=== PATIENT | female | born 1960 | race Caucasian/White ===

== ENCOUNTER 2019-11-08 17:43 | Inpatient (IN) | payer BC, OTHER, MEDICARE ==
[~2019-11-08] VITALS: Ht 165.1 cm; Wt 78.4 kg
[2019-11-08] MEDS ORDERED: ONDANSETRON 4MG/2ML VIAL IV ONE (18:00)
[2019-11-08] MEDS ORDERED: NS 500 ML IV ONE (18:00)
[2019-11-08] MEDS ORDERED: ISOVUE-370 76% 100ML VIAL As Ordered ONE (18:05)
[2019-11-08 18:30] LABS: BASO % 0.3 % (0.0-1.0); EOS % 0.4 % (0.0-3.0); HEMATOCRIT 37.3 % (36.0-47.0); HEMOGLOBIN 12.4 g/dl (12.0-15.5); LYMPH % 9.4 % (24.0-44.0); MEAN CORPUSCULAR HEMOGLOBIN 31.2 pg (27.0-33.0); MEAN CORPUSCULAR HGB CONC 33.2 g/dl (32.0-36.5); MEAN CORPUSCULAR VOLUME 93.7 fl (80.0-96.0); MONO # 0.8 10^3/uL (0.0-0.8); MONO % 7.2 % (0.0-5.0); NEUTROPHILS # 8.7 10^3/uL (1.5-8.5); PLATELET COUNT, AUTOMATED 204 10^3/uL (150-450); RED BLOOD COUNT 3.98 10^6/uL (4.00-5.40); WHITE BLOOD COUNT 10.7 10^3/uL (4.0-10.0)
[2019-11-08] MEDS: MORPHINE 2 MG/ML 1ML VIAL (J2270) IV PRN ×2 (18:35→22:00)
[2019-11-08 18:41] LABS: INR 0.94; PROTHROMBIN TIME 12.8 SECONDS (11.8-14.0)
[2019-11-08 18:42] LABS: PARTIAL THROMBOPLASTIN TIME 26.6 SECONDS (25.0-38.4)
[2019-11-08 19:00] LABS: ALBUMIN 3.7 GM/DL (3.2-5.2); ALT/SGPT 33 U/L (12-78); AMYLASE 58 U/L (25-115); BILIRUBIN,DIRECT < 0.1 MG/DL (0.0-0.2); BILIRUBIN,TOTAL 0.2 MG/DL (0.2-1.0); LIPASE 136 U/L (73-393); TOTAL PROTEIN 6.7 GM/DL (6.4-8.2)
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
[2019-11-08] MEDS ORDERED: MIDAZOLAM INJ 2MG/2ML VIAL (J2250 PER 1MG) IV STA (21:35)
[2019-11-08] MEDS ORDERED: LIDOCAINE 1% MDV 20ML VIAL As Ordered ONE (21:35)
[2019-11-08] MEDS ORDERED: MIDAZOLAM INJ 2MG/2ML VIAL (J2250 PER 1MG) As Ordered ONE (21:36)
[2019-11-08] MEDS ORDERED: LIDOCAINE 1% MDV 20ML VIAL SC ONE (21:45)
[2019-11-08] MEDS ORDERED: LR 1,000 ML IV SCH (22:42)
[2019-11-08] MEDS ORDERED: ONDANSETRON 4MG/2ML VIAL IV PRN (22:45)
[2019-11-08] MEDS ORDERED: oxyCODONE 5MG TAB PO PRN (22:45)
--- NOTE | 2019-11-08 23:18 | REPVR ---
PROCEDURE INFORMATION: Exam: XR Chest, 1 View Exam date and time: 11/08/2019 11:03 PM Age: 59 years old Clinical indication: Device placement; Chest tube; Additional info: Chest tube placement TECHNIQUE: Imaging protocol: XR of the chest Views: 1 view. COMPARISON: CR PORTABLE CHEST X-RAY 11/08/2019 7:49 PM FINDINGS: Tubes, catheters and devices: Interval placement of left-sided chest tube. Lungs: Left greater than right basilar atelectasis and/or infiltrate. Pleural space: Interval improvement in left-sided pneumothorax with mild residual. Heart/Mediastinum: Stable cardiac silhouette. Bones/joints: Displaced left clavicle fracture. Osteopenia. IMPRESSION: 1. Interval placement of left-sided chest tube. Improvement in left-sided pneumothorax with mild residual. 2. Left greater than right basilar atelectasis and/or infiltrate. Electronically signed by: Lester Alvarez On 11/08/2019 23:18:22 PM
[2019-11-09 01:38] VITALS: BP 143/66
[2019-11-09] MEDS: MORPHINE 2 MG/ML 1ML VIAL (J2270) IV PRN ×3 (02:06→08:39)
[2019-11-09 04:00] VITALS: BP 133/78
[2019-11-09 06:52] VITALS: BP 143/82
[2019-11-09] MEDS: DOCUSATE SODIUM 100 MG CAP PO SCH ×2 (08:38→20:19)
[2019-11-09] MEDS ORDERED: FLUBLOK(EGG FREE)(QUAD)INFLUENZA VACC 0.5ML SYRINGE 18YRS & OLDER IM ONE (09:00)
[2019-11-09 12:00] VITALS: BP 142/75
[2019-11-09] MEDS: ACETAMINOPHEN TAB 650MG DOSE (2X325MG) PO PRN (12:25)
[2019-11-09] MEDS ORDERED: SLF 3 ML SYR IV PRN (13:15)
[2019-11-09] MEDS: SLF 3 ML SYR IV SCH ×2 (13:50→22:55)
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
[2019-11-09 16:00] VITALS: BP 131/64
[2019-11-09 20:00] VITALS: BP 125/65
[2019-11-09] MEDS: KETOROLAC 30 MG/ML 1ML VIAL IV PRN (20:19)
[2019-11-10] VITALS: BP 120/59
[2019-11-10 04:00] VITALS: BP 125/69
[2019-11-10] MEDS: SLF 3 ML SYR IV SCH ×3 (05:35→21:01)
[2019-11-10] MEDS: KETOROLAC 30 MG/ML 1ML VIAL IV PRN ×2 (07:43→16:15)
[2019-11-10 08:00] VITALS: BP 121/67
[2019-11-10] MEDS: DOCUSATE SODIUM 100 MG CAP PO SCH ×2 (08:35→20:07)
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
[2019-11-10 12:00] VITALS: BP 130/67
[2019-11-10 16:00] VITALS: BP 129/66
[2019-11-10] MEDS ORDERED: BACITRACIN OINTMENT 30GM TUBE TOP ONE (17:45)
[2019-11-10] MEDS ORDERED: LIDOCAINE 1% MDV 20ML VIAL As Ordered ONE (17:46)
[2019-11-10] MEDS ORDERED: LIDOCAINE 1% SDV 30ML VIAL SC ONE (17:56)
[2019-11-10] MEDS: ACETAMINOPHEN TAB 650MG DOSE (2X325MG) PO PRN (18:32)
[2019-11-10 20:00] VITALS: BP 138/70
[2019-11-11] VITALS: BP 124/86
[2019-11-11 04:00] VITALS: BP 125/64
[2019-11-11] MEDS: SLF 3 ML SYR IV SCH ×2 (05:04→14:00)
[2019-11-11 08:00] VITALS: BP 155/70
[2019-11-11] MEDS: KETOROLAC 30 MG/ML 1ML VIAL IV PRN ×2 (08:01→14:00)
[2019-11-11] MEDS: DOCUSATE SODIUM 100 MG CAP PO SCH (09:00)
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
[2019-11-11 12:00] VITALS: BP 124/59
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
--- NOTE | 2019-12-02 09:06 | REP ---
PORTABLE CHEST X-RAY: 11/09/19 CLINICAL: Follow-up chest tube COMPARISON: 11/08/19 at 10:57PM FINDINGS: Left sided chest tube in relatively stable position. Bibasilar opacity suggesting elements of atelectasis/consolidation and pleural effusions are similar to prior examination. A small left apical pneumothorax is identified. Visualized portions of the mediastinum and cardiac silhouette are stable. Skeletal structures are intact. IMPRESSION: 1. Small left apical pneumothorax. 2. Chest tube in stable position 3. Bibasilar opacity suggesting atelectasis/consolidations and small pleural effusions similar to prior examination. MTDD
--- NOTE | 2019-12-02 09:08 | REP ---
PORTABLE CHEST X-RAY CLINICAL: Follow-up pneumothorax. COMPARISON: 11/10/2019 at 7:30 a.m. FINDINGS: Left chest tube in stable position. Small left apical pneumothorax unchanged. Bilateral lower lobe opacities suggesting elements of atelectasis and pleural fluid (left greater than right) remain stable. No new acute process identified. The mediastinum and cardiac silhouette are normal. The skeletal structures are intact. IMPRESSION: Small stable residual left apical pneumothorax. Bibasilar opacities unchanged. MTDD
--- NOTE | 2019-12-02 09:08 | REP ---
PORTABLE CHEST X-RAY: 11/10/19 CLINICAL: Chest tube COMPARISON: 11/09/19, 11/08/19 FINDINGS: Left sided chest tube in stable position. Small left apical pneumothorax again noted along with bibasilar opacity suggesting elements of atelectasis/consolidation and pleural effusion. Findings are essentially unchanged No new process appreciated. IMPRESSION: 1. Stable chest x-ray. 2. Continued left apical pneumothorax and bibasilar opacities. MTDD
--- NOTE | 2019-12-02 09:09 | REP ---
CHEST X-RAY CLINICAL: Follow-up chest tube removal. TECHNIQUE: PA and lateral. COMPARISON: 11/10/2019. FINDINGS: Left-sided chest tube has been removed. A small residual left apical pneumothorax is again suggested. The lung bases demonstrate mildly improved aeration with decreased opacities. A small residual right pleural effusion is suggested along with bibasilar fibroatelectatic changes. No new acute process. Mediastinum and cardiac silhouette normal. Skeletal structures intact. IMPRESSION: * Chest tube removed. Small residual left apical pneumothorax again noted. * Improved aeration to the bilateral lung [place] with decreased basilar opacities. Continued evidence for small right pleural effusion and bibasilar fibroatelectatic changes. MTDD
== END 2019-11-11 14:24 | disposition home or self-care (01) | DRG 342 ==
LOC: M ED 17:43 → M ED INP 22:42 → ENRESERV 23:04 → M PCU 11-09 01:39
PROVIDERS: ADMIT Surgery; ATTEND Surgery
PROC: 0W9B30Z Drainage of Left Pleural Cavity with Drainage Device, Percutaneous Approach (ICD-10-PCS; principal; 2019-11-08)
DX: S42.002A Fracture of unspecified part of left clavicle, initial encounter for closed fracture (principal); S22.32XA Fracture of one rib, left side, initial encounter for closed fracture; S27.0XXA Traumatic pneumothorax, initial encounter; V86.55XA Driver of 3- or 4- wheeled all-terrain vehicle (ATV) injured in nontraffic accident, initial encounter